=== PATIENT | male | born 1960 | race African-American/Black ===

== ENCOUNTER 2016-10-07 19:28 | Emergency (ER) | payer MEDICAID ==
[~2016-10-07] VITALS: Ht 195.6 cm; Wt 84.0 kg
[~2016-10-07 19:28] MED LIST: PHEN100C4; [UNRECOGNIZED DRUG - CODE]
[2016-10-08 03:15] VITALS: BP 126/79
== END 2016-10-08 04:59 | disposition left against medical advice (07) ==
LOC: ER 19:29
DX: Z04.8 Encounter for examination and observation for other specified reasons (principal); M79.642 Pain in left hand; R51 Headache; Z53.21 Procedure and treatment not carried out due to patient leaving prior to being seen by health care provider

== ENCOUNTER 2017-07-19 14:10 | Emergency (ER) | payer MEDICAID ==
[~2017-07-19] VITALS: Ht 195.6 cm; Wt 83.0 kg
[~2017-07-19 14:10] MED LIST changes: +DIVA250T4; -[UNRECOGNIZED DRUG - CODE]
[2017-07-19 14:36] VITALS: BP 112/78
== END 2017-07-19 18:39 | disposition home or self-care (01) ==
LOC: ER 14:10
DX: Z00.00 Encounter for general adult medical examination without abnormal findings (principal); M19.90 Unspecified osteoarthritis, unspecified site; F32.9 Major depressive disorder, single episode, unspecified; F17.200 Nicotine dependence, unspecified, uncomplicated; F12.10 Cannabis abuse, uncomplicated
CPT/HCPCS: 99281

== ENCOUNTER 2017-12-22 12:26 | Emergency (ER) | payer MEDICAID ==
[~2017-12-22] VITALS: Ht 182.9 cm; Wt 85.0 kg
[2017-12-22] MEDS ORDERED: KETOROLAC 60MG/2ML VIAL IM ONE (12:45)
[2017-12-22 12:54] VITALS: BP 114/65
== END 2017-12-22 13:41 | disposition home or self-care (01) ==
LOC: ER 12:37
DX: M19.90 Unspecified osteoarthritis, unspecified site (principal); J44.9 Chronic obstructive pulmonary disease, unspecified; I10 Essential (primary) hypertension; R56.9 Unspecified convulsions; F41.9 Anxiety disorder, unspecified; F14.10 Cocaine abuse, uncomplicated; F17.210 Nicotine dependence, cigarettes, uncomplicated; Z71.6 Tobacco abuse counseling
CPT/HCPCS: 96372; 99283; 99406; J1885

== ENCOUNTER → 2018-10-21 | Emergency (ER) | payer SELFPAY ==
[~2018-10-21] VITALS: Ht 185.4 cm; Wt 82.0 kg
[~2018-10-21] MED LIST changes: +IBUPROFEN 800MG TABLET PO ONE; +PHENYTOIN SODIUM 1,000 MG in SODIUM CHLORIDE 0.9% 100 ML IV ONE; +SODIUM CHLORIDE 0.9% 1,000 ML IV ONE
[2018-10-21 09:45] LABS: BASOPHILS % 1.2 % (0.0-2.0); EOSINOPHILS % 4.5 % (0.0-5.0); HEMATOCRIT. 41.5 % (42.0-52.0); HEMOGLOBIN. 13.7 g/dL (14.0-18.0); LYMPHOCYTES % 25.8 % (20.0-50.0); MEAN CORPUSCULAR HEMOGLOBIN 30.3 pg (28.0-32.0); MEAN PLATELET VOLUME 9.4 fl (7.4-10.4); MONOCYTES % 10.8 % (2.0-8.0); NEUTROPHILS % 57.7 % (40.0-76.0); PLATELET 143 x1000/uL (130-400); RED BLOOD CELL COUNT 4.51 mill/uL (4.7-6.1); RED CELL DISTRIBUTION WIDTH 14.6 % (11.6-14.6)
[2018-10-21 09:51] LABS: CHLORIDE 104 mEq/L (98-107)
[2018-10-21 09:52] LABS: PROTHROMBIN TIME 10.4 sec (9.6-11.0)
[2018-10-21 09:56] LABS: ETHANOL BLOOD < 10 mg/dL
[2018-10-21 13:01] LABS: *AMPHETAMINES SCREEN URINE NEGATIVE (NEGATIVE); *BENZODIAZEPINES SCREEN URINE NEGATIVE (NEGATIVE); *COCAINE SCREEN URINE NEGATIVE (NEGATIVE)
[2018-10-21 13:02] LABS: CANNABINOID URINE SCREEN PRESUMTIVE POSITIVE (NEGATIVE); METHADONE URINE SCREEN NEGATIVE (NEGATIVE); OPIATES URINE SCREEN NEGATIVE (NEGATIVE); PHENCYCLIDINE URINE SCREEN NEGATIVE (NEGATIVE)
[2018-10-21 13:12] LABS: *BARBITURATES SCREEN URINE NEGATIVE (NEGATIVE)
[2018-10-21 14:24] VITALS: BP 110/53
== END ==
LOC: ER 09:00 → CANBEDREQ 10-23 03:45
DX: R56.9 Unspecified convulsions (principal); J44.9 Chronic obstructive pulmonary disease, unspecified; M19.90 Unspecified osteoarthritis, unspecified site; F14.10 Cocaine abuse, uncomplicated
CPT/HCPCS: 36415; 80048; 80165; 80185; 80305; 80320; 85025; 85610; 96365; 96366; 99283; J1165; J7030; J7050; Z7610; G0480

== ENCOUNTER 2020-07-21 11:46 | Emergency (ER) | payer MEDICAID ==
[~2020-07-21] VITALS: Ht 195.6 cm; Wt 84.0 kg
[~2020-07-21 11:46] MED LIST changes: -IBUPROFEN 800MG TABLET PO ONE; -PHENYTOIN SODIUM 1,000 MG in SODIUM CHLORIDE 0.9% 100 ML IV ONE; -SODIUM CHLORIDE 0.9% 1,000 ML IV ONE
[2020-07-21 12:24] VITALS: BP 145/83
== END 2020-07-21 12:57 | disposition home or self-care (01) ==
LOC: ER 11:46
DX: Z76.0 Encounter for issue of repeat prescription (principal); G40.909 Epilepsy, unspecified, not intractable, without status epilepticus; M19.90 Unspecified osteoarthritis, unspecified site; J44.9 Chronic obstructive pulmonary disease, unspecified
CPT/HCPCS: 99283

== ENCOUNTER 2020-08-20 10:24 | Emergency (ER) | payer MEDICAID ==
[~2020-08-20] VITALS: Ht 195.6 cm; Wt 84.0 kg
[2020-08-20 10:26] VITALS: BP 139/81
[2020-08-20] MEDS ORDERED: LEVE750T10 PO (10:41)
== END 2020-08-20 11:36 | disposition home or self-care (01) ==
LOC: ER 10:24
DX: Z76.0 Encounter for issue of repeat prescription (principal); G40.909 Epilepsy, unspecified, not intractable, without status epilepticus; J44.9 Chronic obstructive pulmonary disease, unspecified; M19.90 Unspecified osteoarthritis, unspecified site; F14.10 Cocaine abuse, uncomplicated
CPT/HCPCS: 99283

== ENCOUNTER 2020-09-05 11:26 | Emergency (ER) | payer MEDICAID ==
[~2020-09-05] VITALS: Ht 195.6 cm; Wt 83.0 kg
[~2020-09-05 11:26] MED LIST changes: +LEVE750T10 PO
[2020-09-05] MEDS ORDERED: LEVE750T4 MT (12:02)
[2020-09-05 13:34] VITALS: BP 134/89
== END 2020-09-05 13:14 | disposition home or self-care (01) ==
LOC: ER 11:26
DX: Z76.0 Encounter for issue of repeat prescription (principal); G40.909 Epilepsy, unspecified, not intractable, without status epilepticus
CPT/HCPCS: 99282; 99283

== ENCOUNTER 2020-10-05 10:02 | Emergency (ER) | payer MEDICAID ==
[~2020-10-05] VITALS: Ht 195.6 cm; Wt 87.0 kg
[~2020-10-05 10:02] MED LIST changes: +LEVE750T4 MT
[2020-10-05] MEDS ORDERED: LEVE750T4 MT (10:36)
[2020-10-05 10:51] VITALS: BP 151/95
== END 2020-10-05 10:51 | disposition home or self-care (01) ==
LOC: ER 10:02
DX: R56.9 Unspecified convulsions (principal); J44.1 Chronic obstructive pulmonary disease with (acute) exacerbation; F14.10 Cocaine abuse, uncomplicated; Z98.890 Other specified postprocedural states; Z76.0 Encounter for issue of repeat prescription
CPT/HCPCS: 99281; 99283

== ENCOUNTER 2020-11-04 09:25 | Emergency (ER) | payer MEDICAID ==
[~2020-11-04] VITALS: Ht 172.7 cm; Wt 90.0 kg
[2020-11-04] MEDS ORDERED: LEVE750T4 MT (11:53)
[2020-11-04 12:20] VITALS: BP 112/70
== END 2020-11-04 12:21 | disposition home or self-care (01) ==
LOC: ER 09:25
DX: G40.909 Epilepsy, unspecified, not intractable, without status epilepticus (principal); J44.1 Chronic obstructive pulmonary disease with (acute) exacerbation; Z76.0 Encounter for issue of repeat prescription; Z98.890 Other specified postprocedural states
CPT/HCPCS: 99281

== ENCOUNTER 2020-12-06 10:06 | Emergency (ER) | payer MEDICAID ==
[~2020-12-06] VITALS: Ht 195.6 cm; Wt 84.0 kg
[2020-12-06 10:19] VITALS: BP 156/89
[2020-12-06] MEDS ORDERED: LEVE750T4 MT (10:29)
== END 2020-12-06 11:38 | disposition home or self-care (01) ==
LOC: ER 10:06
DX: Z76.0 Encounter for issue of repeat prescription (principal); F14.10 Cocaine abuse, uncomplicated; Z59.0 Homelessness; Z86.59 Personal history of other mental and behavioral disorders
CPT/HCPCS: 99283

== ENCOUNTER 2021-01-06 09:58 | Emergency (ER) | payer MEDICAID ==
[~2021-01-06] VITALS: Ht 185.4 cm; Wt 81.0 kg
[2021-01-06 10:06] VITALS: BP 104/75
[2021-01-06] MEDS ORDERED: LEVE750T4 MT (11:45)
== END 2021-01-06 11:52 | disposition home or self-care (01) ==
LOC: ER 09:58
DX: Z76.0 Encounter for issue of repeat prescription (principal); F14.10 Cocaine abuse, uncomplicated; I10 Essential (primary) hypertension; Z86.59 Personal history of other mental and behavioral disorders
CPT/HCPCS: 99282

== ENCOUNTER 2021-02-06 11:05 | Emergency (ER) | payer MEDICAID ==
[~2021-02-06] VITALS: Ht 185.4 cm; Wt 90.0 kg
[2021-02-06] MEDS ORDERED: ACET-2708 MT (12:04)
[2021-02-06] MEDS ORDERED: LEVE750T4 MT (12:04)
[2021-02-06 12:40] VITALS: BP 131/51
== END 2021-02-06 12:43 | disposition home or self-care (01) ==
LOC: ER 11:05
DX: R56.9 Unspecified convulsions (principal); Z76.0 Encounter for issue of repeat prescription; F14.10 Cocaine abuse, uncomplicated; Z79.899 Other long term (current) drug therapy; Z98.890 Other specified postprocedural states
CPT/HCPCS: 99282; 99283

== ENCOUNTER 2021-03-13 11:22 | Emergency (ER) | payer MEDICAID ==
[~2021-03-13] VITALS: Ht 195.6 cm; Wt 88.0 kg
[~2021-03-13 11:22] MED LIST changes: +ACET-2708 MT
[2021-03-13 11:24] VITALS: BP 121/88
[2021-03-13] MEDS ORDERED: LEVE750T4 MT (11:56)
== END 2021-03-13 12:14 | disposition home or self-care (01) ==
LOC: ER 11:22
DX: Z76.0 Encounter for issue of repeat prescription (principal); G40.909 Epilepsy, unspecified, not intractable, without status epilepticus; F14.90 Cocaine use, unspecified, uncomplicated
CPT/HCPCS: 99283

== ENCOUNTER 2021-04-16 09:59 | Emergency (ER) | payer MEDICAID ==
[~2021-04-16] VITALS: Ht 195.6 cm; Wt 84.0 kg
[2021-04-16 11:32] VITALS: BP 138/66
[2021-04-16] MEDS ORDERED: LEVE750T4 MT (11:40)
== END 2021-04-16 11:48 | disposition home or self-care (01) ==
LOC: ER 10:12
DX: R56.9 Unspecified convulsions (principal); Z59.00 Homelessness unspecified; F14.10 Cocaine abuse, uncomplicated; Z79.899 Other long term (current) drug therapy
CPT/HCPCS: 99283

== ENCOUNTER 2021-05-20 09:50 | Emergency (ER) | payer MEDICAID ==
[~2021-05-20] VITALS: Ht 195.6 cm; Wt 86.0 kg
[2021-05-20] MEDS ORDERED: LEVE750T4 MT (10:09)
[2021-05-20] MEDS ORDERED: LEVETIRACETAM 500MG TABLET PO ONE (10:15)
[2021-05-20 10:44] VITALS: BP 148/84
== END 2021-05-20 10:45 | disposition home or self-care (01) ==
LOC: ER 10:06
DX: G40.909 Epilepsy, unspecified, not intractable, without status epilepticus (principal); I10 Essential (primary) hypertension
CPT/HCPCS: 99283

== ENCOUNTER 2021-06-25 12:43 | Emergency (ER) | payer MEDICAID ==
[~2021-06-25] VITALS: Ht 195.6 cm; Wt 86.0 kg
[2021-06-25 12:46] VITALS: BP 141/94
[2021-06-25] MEDS ORDERED: LEVETIRACETAM 250MG TABLET PO ONE (13:00)
[2021-06-25] MEDS ORDERED: LEVE750T4 MT (13:10)
== END 2021-06-25 13:18 | disposition home or self-care (01) ==
LOC: ER 12:43
DX: G40.909 Epilepsy, unspecified, not intractable, without status epilepticus (principal); Z76.0 Encounter for issue of repeat prescription; I10 Essential (primary) hypertension; F14.10 Cocaine abuse, uncomplicated; Z79.899 Other long term (current) drug therapy
CPT/HCPCS: 99282

== ENCOUNTER 2021-07-30 09:28 | Emergency (ER) | payer MEDICAID ==
[~2021-07-30] VITALS: Ht 182.9 cm; Wt 80.0 kg
[2021-07-30 09:44] VITALS: BP 135/72
[2021-07-30] MEDS ORDERED: LEVE750T4 MT (10:08)
== END 2021-07-30 10:29 | disposition home or self-care (01) ==
LOC: ER 09:28
DX: Z76.0 Encounter for issue of repeat prescription (principal); F14.10 Cocaine abuse, uncomplicated; Z79.899 Other long term (current) drug therapy
CPT/HCPCS: 99283

== ENCOUNTER 2021-09-01 10:32 | Emergency (ER) | payer MEDICAID ==
[~2021-09-01] VITALS: Ht 195.6 cm; Wt 90.0 kg
[2021-09-01 10:37] VITALS: BP 156/94
[2021-09-01] MEDS ORDERED: LEVE750T4 MT (11:02)
== END 2021-09-01 11:13 | disposition home or self-care (01) ==
LOC: ER 10:32
DX: Z76.0 Encounter for issue of repeat prescription (principal); R56.9 Unspecified convulsions; F14.10 Cocaine abuse, uncomplicated; Z79.899 Other long term (current) drug therapy
CPT/HCPCS: 99281; 99282

== ENCOUNTER 2021-10-02 11:12 | Emergency (ER) | payer MEDICAID ==
[~2021-10-02] VITALS: Ht 185.4 cm; Wt 82.0 kg
[2021-10-02 13:38] VITALS: BP 141/80
[2021-10-02] MEDS ORDERED: LEVE750T4 MT (14:29)
== END 2021-10-02 14:38 | disposition home or self-care (01) ==
LOC: ER 12:14
DX: Z76.0 Encounter for issue of repeat prescription (principal); G40.909 Epilepsy, unspecified, not intractable, without status epilepticus
CPT/HCPCS: 99283

== ENCOUNTER 2021-11-05 10:04 | Emergency (ER) | payer MEDICAID ==
[~2021-11-05] VITALS: Ht 195.6 cm; Wt 88.0 kg
[2021-11-05 10:36] VITALS: BP 128/78
[2021-11-05] MEDS ORDERED: LEVE750T4 MT (12:44)
== END 2021-11-05 13:00 | disposition home or self-care (01) ==
LOC: ER 10:39
DX: G40.909 Epilepsy, unspecified, not intractable, without status epilepticus (principal); Z76.0 Encounter for issue of repeat prescription; F14.10 Cocaine abuse, uncomplicated; Z79.899 Other long term (current) drug therapy
CPT/HCPCS: 99283

== ENCOUNTER 2022-05-20 10:45 | Emergency (ER) | payer MEDICAID ==
[~2022-05-20] VITALS: Ht 195.6 cm; Wt 88.5 kg
[2022-05-20 10:50] VITALS: BP 143/83
[2022-05-20] MEDS ORDERED: LEVE750T4 MT (12:25)
== END 2022-05-20 13:22 | disposition home or self-care (01) ==
LOC: ER 10:45
DX: G40.909 Epilepsy, unspecified, not intractable, without status epilepticus (principal); F14.10 Cocaine abuse, uncomplicated; Z79.899 Other long term (current) drug therapy
CPT/HCPCS: 99281; 99283

== ENCOUNTER 2022-06-23 10:43 | Emergency (ER) | payer MEDICAID ==
[~2022-06-23] VITALS: Ht 177.8 cm; Wt 57.0 kg
[2022-06-23 10:55] VITALS: BP 157/84
[2022-06-23] MEDS ORDERED: LEVE750T4 MT (11:40)
== END 2022-06-23 12:25 | disposition home or self-care (01) ==
LOC: ER 10:43
DX: Z76.0 Encounter for issue of repeat prescription (principal); G40.909 Epilepsy, unspecified, not intractable, without status epilepticus; R03.0 Elevated blood-pressure reading, without diagnosis of hypertension
CPT/HCPCS: 99281

== ENCOUNTER 2023-03-28 10:40 | Emergency (ER) | payer MEDICAID ==
[~2023-03-28] VITALS: Ht 188 cm; Wt 91.0 kg
[~2023-03-28 10:40] MED LIST changes: +LEVE750T10 MT
[2023-03-28 10:43] VITALS: BP 116/72; PULSE 92; RESP 16; TEMP 98.4; O2SAT 98
[2023-03-28 11:39] LABS: BASOPHILS % 1.1 % (0.0-2.0); EOSINOPHILS % 5.9 % (0.0-5.0); MEAN CORPUSCULAR HEMOGLOBIN 29.7 pg (28.0-32.0); MEAN CORPUSCULAR HGB CONC 33.3 g/dL (31.0-37.0); MEAN PLATELET VOLUME 8.4 fl (7.4-10.4); MONOCYTES % 9.9 % (2.0-8.0); NEUTROPHILS % 68.1 % (40.0-76.0); PLATELET 174 x1000/uL (130-400); RED BLOOD CELL COUNT 4.72 mill/uL (4.7-6.1); RED CELL DISTRIBUTION WIDTH 14.5 % (11.6-14.6); WHITE BLOOD COUNT 5.6 x1000/uL (4.5-11.0)
[2023-03-28 11:56] LABS: CHLORIDE 106 mEq/L (98-107); INDEX HEMOLYSI 1 (1-3); INDEX ICTERIC 1 (1-4); INDEX LIPEMIC 1 (1-3); SODIUM 136 mEq/L (136-145)
[2023-03-28 12:08] LABS: ALANINE AMINOTRANSFERASE 19 IU/L (13-61); ALBUMIN 3.4 g/dL (3.4-5.0); ASPARTATE AMINOTRANSFERASE 19 IU/L (15-37); BILIRUBIN TOTAL 0.3 mg/dL (0.1-1.0); CALCIUM 9.2 mg/dL (8.5-10.1); CARBON DIOXIDE 27 mEq/L (21-32); CREATININE 0.9 mg/dL (0.6-1.3); GLUCOSE 105 mg/dL (70-105); NT PRO B-TYPE NATRIURETIC PEP 58 pg/mL (5-125); PROTEIN TOTAL 8.1 g/dL (6.0-8.3); UREA NITROGEN BLOOD 17 mg/dL (7-21)
[2023-03-28] MEDS: LEVETIRACETAM 500MG PREMIX 100 ML IV ONE ×2 (14:55→15:15)
[2023-03-28] MEDS ORDERED: LEVE750T4 MT (15:47)
== END 2023-03-29 08:38 | disposition home or self-care (01) ==
LOC: ER 10:40
DX: R55 Syncope and collapse (principal); R56.9 Unspecified convulsions; F14.10 Cocaine abuse, uncomplicated; F12.10 Cannabis abuse, uncomplicated; Z79.899 Other long term (current) drug therapy
CPT/HCPCS: 80053; 83880; 85025; 36415; 71045; 93005; 96365; 99285; 82542; J1953; Z7610

== ENCOUNTER 2024-01-20 00:14 | Emergency (ER) | payer MEDICAID ==
[~2024-01-20] VITALS: Ht 190.5 cm; Wt 110.0 kg
[2024-01-20 00:16] VITALS: TEMP 98.5; O2SAT 99
[2024-01-20 01:45] LABS: BASOPHILS % 0.6 % (0.0-2.0); EOSINOPHILS % 3.5 % (0.0-5.0); HEMATOCRIT. 49.2 % (42.0-52.0); HEMOGLOBIN. 16.1 g/dL (14.0-18.0); LYMPHOCYTES % 14.5 % (20.0-50.0); MEAN CORPUSCULAR HEMOGLOBIN 29.4 pg (28.0-32.0); MEAN CORPUSCULAR HGB CONC 32.7 g/dL (31.0-37.0); MEAN CORPUSCULAR VOLUME 90.1 fL (80.0-94.0); MEAN PLATELET VOLUME 8.6 fl (7.4-10.4); NEUTROPHILS % 74.4 % (40.0-76.0); PLATELET 158 x1000/uL (130-400); RED BLOOD CELL COUNT 5.47 mill/uL (4.7-6.1); RED CELL DISTRIBUTION WIDTH 14.1 % (11.6-14.6)
[2024-01-20 01:52] LABS: CHLORIDE 103 mEq/L (98-107); POTASSIUM 3.8 mEq/L (3.5-5.1); SODIUM 135 mEq/L (136-145)
[2024-01-20 01:53] LABS: CALCIUM 10.3 mg/dL (8.7-10.4); CARBON DIOXIDE 25 mEq/L (21-32)
[2024-01-20 01:58] LABS: CREATININE 1.3 mg/dL (0.6-1.3); GLUCOSE 132 mg/dL (70-105); UREA NITROGEN BLOOD 20 mg/dL (9-23)
[2024-01-20 01:59] LABS: ETHANOL BLOOD < 10 mg/dL (<10); TROPONIN I HIGH SENSITIVITY 13 ng/L (3.0-53)
[2024-01-20 02:00] LABS: AMMONIA 47 uMol/L (<32); CREATINE KINASE 150 IU/L (46-171)
[2024-01-20 02:03] LABS: LACTIC ACID 3.8 mmol/L (0.4-2.0)
[2024-01-20 02:07] LABS: CLARITY URINE CLEAR (CLEAR); COLOR URINE YELLOW (YELLOW); GLUCOSE URINE NEGATIVE (NEGATIVE); KETONES URINE NEGATIVE (NEGATIVE); LEUKOCYTE ESTERASE URINE NEGATIVE (NEGATIVE); NITRITE URINE NEGATIVE (NEGATIVE); OCCULT BLOOD URINE NEGATIVE (NEGATIVE); PH URINE 5.5 (4.5-8.0); PROTEIN URINE TRACE (NEGATIVE); SPECIFIC GRAVITY URINE 1.014 (1.005-1.030); UROBILINOGEN URINE 0.2 E.U./dL (0.2-1.0)
[2024-01-20 02:24] LABS: *AMPHETAMINES SCREEN URINE NEGATIVE (NEGATIVE); *BARBITURATES SCREEN URINE NEGATIVE (NEGATIVE); *BENZODIAZEPINES SCREEN URINE NEGATIVE (NEGATIVE); *COCAINE SCREEN URINE NEGATIVE (NEGATIVE); CANNABINOID URINE SCREEN NEGATIVE (NEGATIVE); ECSTASY MDMA SCREEN URINE NEGATIVE (NEGATIVE); METHADONE URINE SCREEN NEGATIVE (NEGATIVE); OPIATES URINE SCREEN NEGATIVE (NEGATIVE); PHENCYCLIDINE URINE SCREEN NEGATIVE (NEGATIVE)
[2024-01-20 02:57] LABS: SQUAMOUS EPITHELIAL CELL URINE FEW /lpf (RARE/1+); WBC URINE 0-2 /hpf (0-2)
[2024-01-20 02:58] LABS: RBC URINE 0-2 /hpf (0-2)
[2024-01-20 02:59] LABS: BACTERIA URINE NONE SEEN
[2024-01-20] MEDS: LEVETIRACETAM 500MG PREMIX 100 ML IV ONE (04:14)
[2024-01-20 05:23] VITALS: BP 141/100; PULSE 105; RESP 19; O2SAT 95
== END 2024-01-20 06:03 | disposition home or self-care (01) ==
LOC: ER 00:14
DX: R41.82 Altered mental status, unspecified (principal); R56.9 Unspecified convulsions; I10 Essential (primary) hypertension; Z79.899 Other long term (current) drug therapy
CPT/HCPCS: 80305; 80048; 81003; 80320; 82140; 82550; 83605; 85025; 84484; 36415; 71045; 70450; 96365; 99285; J1953; G0480